=== PATIENT | male | born 1995 | race Caucasian/White ===

== ENCOUNTER 2019-05-11 20:09 | Emergency (ER) | payer OTHER ==
[2019-05-11 20:16] VITALS: RESP 18; TEMP 98.7
[2019-05-11] MEDS ORDERED: KETOROLAC 30 MG/ML 1 ML VIAL IM STA (20:29)
[2019-05-11] MEDS ORDERED: CEPHALEXIN 500 MG CAP PO STA (20:29)
--- NOTE | 2019-05-11 20:40 | ED ---
General Adult HPI - General Chief complaint: Extremity Injury, Upper Stated complaint: Fall,Wrist Injury Time Seen by Provider: 05/11/19 20:24 Source: patient, RN notes reviewed, old records reviewed Mode of arrival: ambulatory Limitations: no limitations - History of Present Illness Initial comments: 23-year-old male patient presents to chief complaint of left wrist injury, fall. Patient reports he is an bilaterally slipped, fell approximately 15 feet per his estimation. Patient reports he caught himself with his arms. Patient chief complaint is left wrist/thumb pain. Denies any trauma to head or neck. Abdomen loss of consciousness. Denies any headache or changes in vision. Patient laboratory data difficulty. This is not a chief complaint the patient also has a recent tattoo on his left thumb region that does appear to be infected. Systemic: Pt denies fatigue, fever/chills, rash. Pt denies weakness, night sweats, weight loss. Neuro: Pt denies headache, visual disturbances, syncope or pre-syncope. HEENT: Pt denies ocular discharge or irritation, otalgia, rhinorrhea, pharyngitis or notable lymphadenopathy. Cardiopulmonary: Pt denies chest pain, SOB, heart palpitations, dyspnea on exertion. Abdominal/GI: Pt denies abdominal pain, n/v/d. : Pt denies dysuria, burning w/ urination, frequency/urgency. Denies new onset urinary or bowel incontinence. MSK: Pt denies loss of strength or function in extremities. Neuro: Pt denies new onset weakness, paresthesias. - Related Data Previous Rx's Medication Instructions Recorded Cephalexin [Keflex] 500 mg PO Q6HR 7 Days #28 cap 05/11/19 Allergies Allergy/AdvReac Type Severity Reaction Status Date / Time No Known Allergies Allergy Verified 05/11/19 20:16 Review of Systems ROS Statement: Those systems with pertinent positive or pertinent negative responses have been documented in the HPI. ROS Other: All systems not noted in ROS Statement are negative. Past Medical History Past Medical History: No Reported History History of Any Multi-Drug Resistant Organisms: None Reported Past Surgical History: No Surgical Hx Reported Past Psychological History: Depression Smoking Status: Current every day smoker Past Alcohol Use History: Daily Past Drug Use History: None Reported General Exam - General Exam Comments Initial Comments: Constitutional: NAD, AOX3, Pt has pleasant affect. HEENT: NC/AT, trachea midline, neck supple, no lymphadenopathy. Posterior pharynx non erythematous, without exudates. External ears appear normal, without discharge. Mucous membranes moist. Eyes PERRLA, EOM intact. There is no scleral icterus. No pallor noted. Cardiopulmonary: RRR, no murmurs, rubs or gallops, no JVD noted. Lungs CTAB in anterior and posterior lan. No peripheral edema. Abdominal exam: Abdomen soft and non-distended. Abdomen non-tender to palpation in all 4 quadrants. Bowel sounds active in LLQ. No hepatosplenomegaly. No ecchymosis Neuro: CN II-XII intact. No nuchal rigidity. No raccon eyes, no su sign, no hemotympanum. No cervical spinal tenderness. MSK: Left wrist medially and laterally nontender palpation. Left nontender palpation. Range of motion intact. Neurovascularly intact. 2 x 2 centimeter area of erythema, discharge without fluctuance area recent tattoo. No streaking. Snuffbox tenderness positive. No posterior calf tenderness bilaterally, homans sign negative bilaterally. Posterior tibialis and radial pulse +2 bilaterally. Sensation intact in upper and lower extremities. Full active ROM in upper and lower extremities, 5/5 stregnth. Limitations: no limitations Course Vital Signs 05/11/19 20:11 Temperature 98.7 F Pulse Rate 89 Respiratory 18 Rate Blood Pressure 127/87 O2 Sat by Pulse 97 Oximetry Medical Decision Making - Medical Decision Making 23-year-old male patient presents to chief complaint of left wrist injury, fall. Patient reports he is an bilaterally slipped, fell approximately 15 feet per his estimation. Patient reports he caught himself with his arms. Patient chief complaint is left wrist/thumb pain. Denies any trauma to head or neck. Abdomen loss of consciousness. Denies any headache or changes in vision. Patient laboratory data difficulty. This is not a chief complaint the patient also has a recent tattoo on his left thumb region that does appear to be infected. Pt VSS, afebrile. Physical exam displayed: Left wrist medially and laterally nontender palpation. Left nontender palpation. Range of motion intact. Neurovascularly intact. 2 x 2 centimeter area of erythema, discharge without fluctuance area recent tattoo. No streaking. Snuffbox tenderness positive. I films are negative. Patient discharged with outpatient orthopedic follow-up. Patient placed in thumb spica splint, neurovascularly intact after splint placement. Patient also be placed on Keflex for superficial skin infection. Case discussed with Dr. Ibarra. Disposition Clinical Impression: Wrist sprain, Superficial skin infection Disposition: HOME SELF-CARE Condition: Stable Instructions (If sedation given, give patient instructions): Wrist Sprain (ED), Cellulitis (ED) Additional Instructions: Patient to adhere to previously discussed treatment plan and will take medication(s) as directed. Patient to follow up with PCP in 1-2 days. Patient to return to ED if symptoms do not improve. Medications directed. Follow up with primary care provider and orthopedist tomorrow. Return to ER if condition worsens. Monitor superficial skin infection. If condition worsens in any way return to ER. Prescriptions: Cephalexin [Keflex] 500 mg PO Q6HR 7 Days #28 cap Is patient prescribed a controlled substance at d/c from ED?: No Referrals: None,Stated [Primary Care Provider] - 1-2 days Gab Parry MD [Medical Doctor] - 1-2 days
--- NOTE | 2019-05-11 21:49 | XR ---
EXAMINATION: XR chest 2V DATE AND TIME: 05/11/2019 9:01 PM CLINICAL INDICATION: PHH; fall, pain TECHNIQUE: Departmental protocol COMPARISON: None FINDINGS: The lungs are clear. The pleural spaces are negative. The cardiac silhouette is not enlarged. The remainder of the mediastinal silhouette is unremarkable. The skeletal structures and soft tissues are negative for acute findings. IMPRESSION: NO ACUTE PROCESS.
--- NOTE | 2019-05-11 21:51 | XR ---
PROCEDURE: XR hand complete LT - 3V DATE AND TIME: 05/11/2019 9:02 PM CLINICAL INDICATION: PHH; fall, pain TECHNIQUE: Department protocol COMPARISON: None FINDINGS: There is no fracture or malalignment. The soft tissues are unremarkable. IMPRESSION: NO ACUTE PROCESS.
--- NOTE | 2019-05-11 21:52 | XR ---
PROCEDURE: XR wrist complete LT - 4V DATE AND TIME: 05/11/2019 9:02 PM CLINICAL INDICATION: PHH; fall, pain TECHNIQUE: Department protocol COMPARISON: None FINDINGS: There is no fracture or malalignment. The soft tissues show evidence of mild swelling. IMPRESSION: Negative for fracture or malalignment.
[2019-05-11] MEDS ORDERED: CEPHALEXIN 500MG STARTER PACK 4 CAP BTL PO STA (22:02)
[2019-05-11 22:14] VITALS: BP 119/40; PULSE 68
== END 2019-05-11 22:16 | disposition home or self-care (01) ==
LOC: EC 20:09
DX: S63.502A Unspecified sprain of left wrist, initial encounter (principal); L08.9 Local infection of the skin and subcutaneous tissue, unspecified; L81.8 Other specified disorders of pigmentation; F17.200 Nicotine dependence, unspecified, uncomplicated; W17.89XA Other fall from one level to another, initial encounter; Y92.89 Other specified places as the place of occurrence of the external cause
CPT/HCPCS: 73110; 73130; 71046; 99284; 29125; 96372; J1885

== ENCOUNTER 2025-01-09 12:19 | Emergency (ER) | payer BC, OTHER ==
[2025-01-09 12:55] VITALS: RESP 16
[2025-01-09] MEDS: LIDOCAINE 1% INJ 10MG/ML (20 ML MDV) SQ ONE (13:04)
[2025-01-09] MEDS: SODIUM CHLORIDE 0.9% 1,000 ML IV ONE (13:15)
[2025-01-09] MEDS: ONDANSETRON 4 MG/2 ML VIAL IVP STA (13:16)
[2025-01-09] MEDS: MORPHINE SULFATE 4 MG/ML SYRINGE IVP STA (13:16)
[2025-01-09 13:38] LABS: Basophils # (A) 0.03 10*3/uL (0.00-0.10); Basophils % (A) 0.3 %; Eosinophils # (A) 0.12 10*3/uL (0.04-0.35); Eosinophils % (A) 1.2 %; HCT 38.7 % (39.6-50.0); HGB 14.2 g/dL (13.0-17.0); Lymphocytes # (A) 1.64 10*3/uL (0.90-5.00); MCH 35.9 pg (27.0-32.0); MCHC 36.7 g/dL (32.0-37.0); Mean Platelet Volume 10.6 fL (9.5-12.2); Monocytes # (A) 0.55 10*3/uL (0.20-1.00); Monocytes % (A) 5.7 %; Neutrophils # (A) 7.28 10*3/uL (1.80-7.70); Neutrophils % (A) 75.5 %; Platelet Count 218 10*3/uL (140-440); RBC 3.95 10*6/uL (4.40-5.60); WBC 9.65 10*3/uL (4.50-10.00)
[2025-01-09 14:07] LABS: ALT 23 U/L (4-49); AST 33 U/L (17-59); African American GFR (CKD) >90 (>60 ml/min/1.73 sqM); Albumin 4.3 g/dL (3.5-5.0); Alkaline Phosphatase 79 U/L (38-126); Anion Gap 5 mmol/L; Blood Urea Nitrogen 14 mg/dL (9-20); Calcium 9.7 mg/dL (8.4-10.2); Carbon Dioxide 27 mmol/L (22-30); Chloride 104 mmol/L (98-107); Glucose 150 mg/dL (74-99); Non-African American GFR(CKD) >90 (>60 ml/min/1.73 sqM); Potassium 3.4 mmol/L (3.5-5.1); Sodium 136 mmol/L (137-145); Total Bilirubin 0.9 mg/dL (0.2-1.3); Total Protein 5.9 g/dL (6.3-8.2)
--- NOTE | 2025-01-09 14:12 | CT ---
EXAMINATION TYPE: CT brain cspine wo con CT DLP: 1359.6 mGycm, Automated exposure control for dose reduction was used. DATE OF EXAM: 01/09/2025 1:47 PM COMPARISON: None.. CLINICAL INDICATION:Male, 29 years old with history of syncope with head injury; SYNCOPE, pain TECHNIQUE: Brain: Multiple axial CT images of the brain were obtained without IV contrast. Cspine: Axial CT images from the skull base to the inferior aspect of T2 we obtained without intraven ous contrast. Coronal and sagittal reformatted images were also reviewed. FINDINGS: Brain: Extra-axial spaces: No abnormal extra-axial fluid collections. Ventricular system: Within normal limits Cerebral parenchyma: No acute intraparenchymal hemorrhage or mass effect. The domínguez-white junction is well differentiated. Cerebellum: Unremarkable. Mass effect: No evidence of midline shift. Intracranial vasculature: unremarkable Soft tissues: Acute left posterior parietal scalp hematoma with a maximal thickness of 6 mm. Calvarium/osseous structures: No depressed skull fracture. Paranasal sinuses and mastoid air cells: The mastoid air cells are clear. Mild to moderate mucosal th ickening of the left maxillary sinus. Near complete opacification of the right maxillary sinus. Minim al mucosal thickening of the bilateral sphenoid sinuses. The remaining paranasal sinuses are clear. N teri septal deviation to the left with spur. Visualized orbits: Orbital contents are intact. Cervical spine: Fracture: None. Osseous structures: Multilevel disc space narrowing with endplate sclerosis. Spina bifida occulta at C5. Vertebral alignment: Within normal limits. Spinal canal/Neural Foramina: Disc osteophyte complexes at C3-C4 and C4-C5 with at least mild spinal canal stenosis. Facet joint uncovertebral joint arthropathy scattered throughout the cervical spine w ith varying degrees of neural foraminal stenosis. Neck soft tissues: Prevertebral soft tissues are within normal limits. Other: The airway is patent. The lung apices are clear. IMPRESSION: 1. No acute intracranial process. 2. Acute left posterior parietal scalp hematoma. 3. No evidence of cervical spine fracture. 4. Mild multilevel degenerative disc disease. [facility], , 01/09/2025 2:09 PM
--- NOTE | 2025-01-09 14:43 | ED ---
Head Injury HPI - General Chief complaint: Head Injury Stated complaint: Right Hand Injury Time Seen by Provider: 01/09/25 12:25 Source: patient Mode of arrival: ambulatory Limitations: no limitations - History of Present Illness Initial comments: 29-year-old male who presents emergency department with a finger laceration. States that he was working on a door frame when he cut his right index finger while working. He then came into the hospital as he thought he needed stitches. Patient ended up having a syncopal episode in triage. Patient fell and hit his head. He is now complaining of headache. Patient hit the occiput. He does not take any blood thinners. No visual disturbance. No lateralizing weakness. No speech difficulties. Denies any chest pain or shortness of breath. No other alleviating, precipitating or modifying factors - Related Data Previous Rx's Medication Instructions Recorded Cephalexin [Keflex] 500 mg PO Q6HR 7 Days #28 cap 05/11/19 Allergies/Adverse reactions: Allergies Allergy/AdvReac Type Severity Reaction Status Date / Time No Known Allergies Allergy Verified 01/09/25 12:27 Review of Systems ROS Statement: Those systems with pertinent positive or pertinent negative responses have been documented in the HPI. ROS Other: All systems not noted in ROS Statement are negative. Past Medical History Past Medical History: No Reported History History of Any Multi-Drug Resistant Organisms: None Reported Past Surgical History: No Surgical Hx Reported Past Psychological History: Depression Smoking Status: Never smoker Past Alcohol Use History: Daily Past Drug Use History: Marijuana General Exam Limitations: no limitations General appearance: alert, in no apparent distress Head exam: Present: normocephalic, other (Occipital hematoma measuring 2 cm) Eye exam: Present: normal appearance, PERRL, EOMI. Absent: scleral icterus, c onjunctival injection, periorbital swelling ENT exam: Present: normal exam, mucous membranes moist Neck exam: Present: normal inspection. Absent: tenderness, meningismus, lymphadenopathy Respiratory exam: Present: normal lung sounds bilaterally. Absent: respiratory distress, wheezes, rales, rhonchi, stridor Cardiovascular Exam: Present: regular rate, normal rhythm, normal heart sounds. Absent: systolic murmur, diastolic murmur, rubs, gallop, clicks GI/Abdominal exam: Present: soft, normal bowel sounds. Absent: distended, tenderness, guarding, rebound, rigid Extremities exam: Present: full ROM, normal capillary refill, other (Distal fingertip laceration to the right index finger measuring 1.5 cm. No active bleeding. No nail involvement.). Absent: tenderness, pedal edema, joint swelling, calf tenderness Back exam: Present: normal inspection Neurological exam: Present: alert, oriented X3, CN II-XII intact Psychiatric exam: Present: normal affect, normal mood Skin exam: Present: warm, dry, intact, normal color. Absent: rash Course Vital Signs 01/09/25 01/09/25 01/09/25 12:22 12:51 15:10 Temperature 97.9 F 97.7 F 98.3 F Pulse Rate 52 L 68 70 Respiratory 24 16 16 Rate Blood Pressure 89/54 116/83 123/88 O2 Sat by Pulse 100 100 99 Oximetry Procedures - Laceration Laceration #1 Consent Obtained: verbal consent Indication: laceration Site: upper extremity Size (cm): 2 Description: linear Depth: simple, single layer Anesthetic Used: lidocaine 1% Anesthesia Technique: local infiltration Amount (mls): 5 Pre-repair: wound explored, irrigated extensively, deep structures intact Type of Sutures: nylon Size of Sutures: 5-0 Number of Sutures: 4 Technique: simple, interrupted Patient Tolerated Procedure: well, no complications Medical Decision Making - Medical Decision Making Was pt. sent in by a medical professional or institution (RUFINA Og, PATIENT FINANCIAL SERVICES COORDINATOR, urgent care, hospital, or penitentiary...) When possible be specific @ -No Did you speak to anyone other than the patient for history (EMS, parent, family, police, friend...)? What history was obtained from this source @ -No Did you review nursing and triage notes (agree or disagree)? Why? @ -I reviewed and agree with nursing and triage notes Were old charts reviewed (outside hosp., previous admission, EMS record, old EKG, old radiological studies, urgent care reports/EKG's, penitentiary records)? Report findings @ -No old charts were reviewed Differential Diagnosis (chest pain, altered mental status, abdominal pain women, abdominal pain men, vaginal bleeding, weakness, fever, dyspnea, syncope, headache, dizziness, GI bleed, back pain, seizure, CVA, palpatations, mental health, musculoskeletal)? @ -Differential Syncope: Valvular disease, hypertrophic cardiomyopathy, pulmonary embolism, tamponade, tachycardia, bradycardia, GA, hypovolemia, hemorrhage, dissection, anemia, intracranial hemorrhage, seizure, hypoglycemia, carbon monoxide poisoning, this is not meant to be an all-inclusive list. EKG interpreted by me (3pts min.). @ -Yes and demonstrates sinus rhythm with a rate of 63. SC interval 150. QRS 102. QTc of 411. No acute ST segment elevation X-rays interpreted by me (1pt min.). @ -None done CT interpreted by me (1pt min.). @ -yes which demonstrates no acute process U/S interpreted by me (1pt. min.). @ -None done What testing was considered but not performed or refused? (CT, X-rays, U/S, labs)? Why? @ -None What meds were considered but not given or refused? Why? @ -None Did you discuss the management of the patient with other professionals (professionals i.e. , PA, PATIENT FINANCIAL SERVICES COORDINATOR, lab, RT, psych nurse, director of social services, yarder engineer, teacher, military source operations officer, nurse outreach case manager)? Give summary @ -No Was smoking cessation discussed for >3mins.? @ -No Was critical care preformed (if so, how long)? @ -No Were there social determinants of health that impacted care today? How? (Homelessness, low income, unemployed, alcoholism, drug addiction, transportation, low edu. Level, literacy, decrease access to med. care, [facility], rehab)? @ -No Was there de-escalation of care discussed even if they declined (Discuss DNR or withdrawal of care, Hospice)? DNR status @ -No What co-morbidities impacted this encounter? (DM, HTN, Smoking, COPD, CAD, Cancer, CVA, ARF, Chemo, Hep., AIDS, mental health diagnosis, sleep apnea, morbid obesity)? @ -None Was patient admitted / discharged? Hospital course, mention meds given and route, prescriptions, significant lab abnormalities, going to OR and other pert inent info. @ -Upon arrival patient seen and evaluated in qu[facility] 11. Thorough history and physical exam was performed. IV is established. Patient was given morphine for pain control. Laboratory studies are conducted. Pelvic EKG was performed. CT of the head was performed. Patient up-to-date on tetanus. I did perform laceration repair. Patient be discharged home at this time. Instructed to follow-up with his primary care doctor and have his stitches removed in 7 to 10 days. Return for any new or worsening symptoms. Patient agreeable to plan was discharged in stable condition Undiagnosed new problem with uncertain prognosis? @ -No Drug Therapy requiring intensive monitoring for toxicity (Heparin, Nitro, Insulin, Cardizem)? @ -No Were any procedures done? @ -Laceration repair Diagnosis/symptom? @ -Acute syncope, blunt head trauma, right index finger laceration Acute, or Chronic, or Acute on Chronic? @ -Acute Uncomplicated (without systemic symptoms) or Complicated (systemic symptoms)? @ -Complicated Side effects of treatment? @ -No Exacerbation, Progression, or Severe Exacerbation? @ -No Poses a threat to life or bodily function? How? (Chest pain, USA, GA, pneumonia, PE, COPD, DKA, ARF, appy, cholecystitis, CVA, Diverticulitis, Homicidal, Suicidal, threat to staff... and all critical care pts) @ -No - Lab Data Result diagrams: 01/09/25 13:22 01/09/25 13:22 Lab Results 01/09/25 01/09/25 Range/Units 13:22 13:22 WBC 9.65 (4.50-10.00) 10*3/uL RBC 3.95 L (4.40-5.60) 10*6/uL Hgb 14.2 (13.0-17.0) g/dL Hct 38.7 L (39.6-50.0) % MCV 98.0 H (80.0-97.0) fL MCH 35.9 H (27.0-32.0) pg MCHC 36.7 (32.0-37.0) g/dL Plt Count 218 (140-440) 10*3/uL MPV 10.6 (9.5-12.2) fL Immature Gran % (Auto) 0.3 % Neutrophils % 75.5 % Lymphocytes % 17.0 % Monocytes % 5.7 % Eosinophils % 1.2 % Basophils % 0.3 % Immature Gran # 0.03 (0.00-0.04) 10*3/uL Neutrophils # 7.28 (1.80-7.70) 10*3/uL Lymphocytes # 1.64 (0.90-5.00) 10*3/uL Monocytes # 0.55 (0.20-1.00) 10*3/uL Eosinophils # 0.12 (0.04-0.35) 10*3/uL Basophils # 0.03 (0.00-0.10) 10*3/uL Sodium 136 L (137-145) mmol/L Potassium 3.4 L (3.5-5.1) mmol/L Chloride 104 (98-107) mmol/L Carbon Dioxide 27 (22-30) mmol/L Anion Gap 5 mmol/L BUN 14 (9-20) mg/dL Creatinine 0.90 (0.66-1.25) mg/dL Est GFR (CKD-EPI)AfAm >90 (>60 ml/min/1.73 sqM) Est GFR (CKD-EPI)NonAf >90 (>60 ml/min/1.73 sqM) Glucose 150 H (74-99) mg/dL Calcium 9.7 (8.4-10.2) mg/dL Total Bilirubin 0.9 (0.2-1.3) mg/dL AST 33 (17-59) U/L ALT 23 (4-49) U/L Alkaline Phosphatase 79 (38-126) U/L Total Protein 5.9 L (6.3-8.2) g/dL Albumin 4.3 (3.5-5.0) g/dL Disposition Clinical Impression: Closed head injury, Hematoma of scalp, Finger laceration, Syncope Disposition: HOME SELF-CARE Condition: Stable Instructions (If sedation given, give patient instructions): Care For Your Stitches (ED), Laceration (ED), Head Injury (ED) Additional Instructions: Please keep the area clean. Your stitches must be removed in 7 to 10 days. You can return to the emergency department to have them taken out or see your doctor. Return for any signs of infection such as redness or drainage from the site. Do not soak the area. Is patient prescribed a controlled substance at d/c from ED?: No Referrals: None,Stated [Primary Care Provider] - 1-2 days Time of Disposition: 14:46
[2025-01-09 15:11] VITALS: BP 123/88; PULSE 70; TEMP 98.3
== END 2025-01-09 15:11 | disposition home or self-care (01) ==
LOC: EC 12:19
DX: S00.03XA Contusion of scalp, initial encounter (principal); S61.210A Laceration without foreign body of right index finger without damage to nail, initial encounter; W26.9XXA Contact with unspecified sharp object(s), initial encounter; Y99.0 Civilian activity done for income or pay
CPT/HCPCS: 36415; 93005; 80053; 85025; 72125; 70450; 99284; 96374; 96375; 96361; 12001; J2270; J2405; J2003